=== PATIENT | male | born 1990 | race Hispanic/Latino ===

== ENCOUNTER 2017-10-16 08:30 | Emergency (ER) | payer OTHER ==
[2017-10-16] MEDS ORDERED: IBUPROFEN 600 MG TABLET ONE (08:43)
== END 2017-10-16 08:53 | disposition home or self-care (01) ==
LOC: EDH 08:30
DX: M62.830 Muscle spasm of back (principal); M54.5 Low back pain; Z72.0 Tobacco use

== ENCOUNTER 2018-09-26 14:16 | Emergency (ER) | payer OTHER ==
[2018-09-26 14:42] LABS: BASOPHILS % (AUTO) 3.5 % (0.0-5.0); EOSINOPHILS % (AUTO) 2.1 % (0.0-8.0); HEMATOCRIT 47.4 % (42-54); MEAN CORPUSCULAR HEMOGLOBIN 31.8 pg (27.0-33.0); MEAN CORPUSCULAR HGB CONC 34.7 g/dL (32.0-36.0); MEAN CORPUSCULAR VOLUME 91.6 fL (79-99); MONOCYTES % (AUTO) 6.1 % (3.0-13.0); NEUTROPHILS % (AUTO) 77.3 % (40.0-77.0); PLATELET COUNT (AUTO) 303 K/uL (130-400); RED BLOOD CELL COUNT(AUTO) 5.18 MIL/uL (4.50-6.20); RED CELL DISTRIBUTION WIDTH 12.7 % (11.0-15.5); WHITE BLOOD COUNT (AUTO) 9.4 K/uL (4.8-10.8)
[2018-09-26 14:51] LABS: POTASSIUM 4.4 mmol/L (3.5-5.1)
== END 2018-09-26 17:23 | disposition home or self-care (01) ==
LOC: EDH 14:16
DX: R07.89 Other chest pain (principal); R06.4 Hyperventilation; F41.1 Generalized anxiety disorder; Z72.0 Tobacco use
CPT/HCPCS: 36415; 71045; 80048; 84484; 85025; 93005